=== PATIENT | male | born 1955 | race Caucasian/White ===

== ENCOUNTER 2019-04-16 12:33 | Inpatient (IN) | payer OTHER ==
[2019-04-16 12:53] VITALS: BMI 25.5
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
[2019-04-16] MEDS ORDERED: MAGNESIUM CITRATE 300 ML BOTTLE PO PRN (13:29)
[2019-04-16] MEDS ORDERED: MAGNESIUM HYDROX 2400MG/30ML ORAL SUSPENSION 30 ML CUP PO PRN (13:29)
[2019-04-16] MEDS ORDERED: ACETAMINOPHEN 325 MG TABLET (FP) PO PRN (13:29)
[2019-04-16] MEDS ORDERED: MENTHOL/PHENOL 1 EACH UD MM PRN (13:29)
[2019-04-16] MEDS ORDERED: MAG HYDROX/AL HYDROX/SIMETH 30 ML UNIT-DOSE CUP PO PRN (13:29)
[2019-04-16] MEDS ORDERED: IBUPROFEN 400 MG TABLET (FP) PO PRN (13:29)
[2019-04-16] MEDS ORDERED: BISMUTH SUBSALICYLATE 524 MG/30 ML UD PO PRN (13:29)
[2019-04-16] MEDS ORDERED: METHOCARBAMOL 500 MG TABLET PO PRN (13:29)
[2019-04-16] MEDS ORDERED: chlordiazePOXIDE HCL 25 MG CAPSULE PO PRN (13:29)
[2019-04-16] MEDS ORDERED: hydrOXYzine HCL 25 MG TABLET (FP) PO PRN (13:29)
[2019-04-16] MEDS ORDERED: ALBUTEROL SO4 8 GM HFA INHALER IH PRN (13:31)
[2019-04-16] MEDS ORDERED: ARTIFICIAL TEARS (POLYVINYL ALCOHOL) OPTH DROPS OU PRN (13:32)
[2019-04-16] MEDS ORDERED: chlordiazePOXIDE HCL 25 MG CAPSULE PO ONE (14:30)
[2019-04-16] MEDS: chlordiazePOXIDE HCL 25 MG CAPSULE PO SCH ×2 (18:16→22:54)
[2019-04-16 21:40] LABS: PH,URINE 5.5 (5.0-8.0); URINE APPEARANCE TURBID; URINE BILIRUBIN NEGATIVE (NEGATIVE); URINE COLOR YELLOW; URINE GLUCOSE (UA) NEGATIVE (NEGATIVE); URINE KETONE NEGATIVE (NEGATIVE); URINE LEUK ESTERASE NEGATIVE (NEGATIVE); URINE NITRITE NEGATIVE (NEGATIVE); URINE PROTEIN NEGATIVE (NEGATIVE); URINE UROBILINOGEN 0.2 mg/dL (0.2-1.0)
[2019-04-16] MEDS: MELATONIN 5 MG TABLETS PO PRN (22:54)
[2019-04-16] MEDS: THIAMINE HCL 100 MG TABLET (FP) PO SCH (22:54)
--- NOTE | 2019-04-16 23:57 | EKG ---
Test Reason : Blood Pressure : / mmHG Vent. Rate : 074 BPM Atrial Rate : 074 BPM P-R Int : 160 ms QRS Dur : 086 ms QT Int : 392 ms P-R-T Axes : 062 -34 043 degrees QTc Int : 435 ms NORMAL SINUS RHYTHM LEFT AXIS DEVIATION ABNORMAL ECG NO PREVIOUS ECGS AVAILABLE Confirmed by JALEN LA, ROLANDA ([id number]) on 04/16/2019 11:56:58 PM Referred By: KERLINE PRITCHARD Confirmed By:ROLANDA RAO MD
[2019-04-17] MEDS: chlordiazePOXIDE HCL 25 MG CAPSULE PO SCH ×4 (05:31→22:29)
[2019-04-17 10:47] LABS: ALBUMIN 2.9 g/dl (3.4-5.0); BILIRUBIN,TOTAL 0.7 mg/dL (0.2-1); BLOOD UREA NITROGEN 12.8 mg/dL (7-18); CALCIUM 8.4 mg/dL (8.5-10.1); CREATININE 0.9 mg/dL (0.55-1.3); POTASSIUM 4.1 mmol/L (3.5-5.1); TOT PROT 6.6 g/dl (6.4-8.2)
[2019-04-17 10:49] LABS: HEMATOCRIT 38.3 % (35.4-49); MCH 32.1 pg (25.7-33.7); MCHC 34.1 g/dl (32.0-35.9); MEAN CELL VOLUME 94.1 fl (80-96); MEAN PLT VOLUME 9.2 fl (7.5-11.1); PLATELET COUNT 231 K/MM3 (134-434); RBC 4.07 M/mm3 (4.00-5.60); RDW 13.2 % (11.9-15.9); WHITE BLOOD COUNT 4.8 K/mm3 (4.0-10.0)
[2019-04-17] MEDS: PRENATAL VITAMINS W/ FOLIC ACID TABLET (FP) PO SCH (10:49)
--- NOTE | 2019-04-17 11:28 | PN ---
S CIWA - CIWA Score Nausea/Vomitin-Mild Nausea/No Vomiting Muscle Tremors: 4-Moderate,w/Arms Extend Anxiety: 2 Agitation: 3 Paroxysmal Sweats: 1-Minimal Palms Moist Orientation: 1-Uncertain about Date Tacttile Disturbances: 1-Very Mild Itch/Numbness Auditory Disturbances: 0-None Visual Disturbances: 0-None Headache: 1-Very Mild CIWA-Ar Total Score: 14 BHS Progress Note (SOAP) Subjective: observing the patient sitting on the edge of the bed eating breakfast alert speech clearly good eye contact encourage oral fluid Objective: 04/17/19 11:27 Vital Signs Temperature 97.2 F L 04/17/19 09:10 Pulse Rate 88 04/17/19 09:10 Respiratory Rate 18 04/17/19 09:10 Blood Pressure 90/65 04/17/19 09:10 O2 Sat by Pulse Oximetry (%) Laboratory Last Values Sodium 142 mmol/L (136-145) 04/17/19 07:50 Potassium 4.1 mmol/L (3.5-5.1) 04/17/19 07:50 Chloride 109 mmol/L (98-107) H 04/17/19 07:50 Carbon Dioxide 27 mmol/L (21-32) 04/17/19 07:50 Anion Gap 6 MMOL/L (8-16) L 04/17/19 07:50 BUN 12.8 mg/dL (7-18) 04/17/19 07:50 Creatinine 0.9 mg/dL (0.55-1.3) 04/17/19 07:50 Est GFR (CKD-EPI)AfAm 105.72 04/17/19 07:50 Est GFR (CKD-EPI)NonAf 91.22 04/17/19 07:50 Random Glucose 84 mg/dL (74-106) 04/17/19 07:50 Calcium 8.4 mg/dL (8.5-10.1) L 04/17/19 07:50 Total Bilirubin 0.7 mg/dL (0.2-1) 04/17/19 07:50 AST 13 U/L (15-37) L 04/17/19 07:50 ALT 15 U/L (13-61) 04/17/19 07:50 Alkaline Phosphatase 132 U/L (45-117) H 04/17/19 07:50 Total Protein 6.6 g/dl (6.4-8.2) 04/17/19 07:50 Albumin 2.9 g/dl (3.4-5.0) L 04/17/19 07:50 Urine Color Yellow 04/16/19 15:20 Urine Appearance Turbid 04/16/19 15:20 Urine pH 5.5 (5.0-8.0) 04/16/19 15:20 Ur Specific [place] 1.022 (1.010-1.035) 04/16/19 15:20 Urine Protein Negative (NEGATIVE) 04/16/19 15:20 Urine Glucose (UA) Negative (NEGATIVE) 04/16/19 15:20 Urine Ketones Negative (NEGATIVE) 04/16/19 15:20 Urine Blood Negative (NEGATIVE) 04/16/19 15:20 Urine Nitrite Negative (NEGATIVE) 04/16/19 15:20 Urine Bilirubin Negative (NEGATIVE) 04/16/19 15:20 Urine Urobilinogen 0.2 mg/dL (0.2-1.0) 04/16/19 15:20 Ur Leukocyte Esterase Negative (NEGATIVE) 04/16/19 15:20 lab noted Assessment: 04/17/19 11:27 alcohol withdrawal sx Plan: continue alcohol detox
[2019-04-17] MEDS: THIAMINE HCL 100 MG TABLET (FP) PO SCH (22:29)
[2019-04-18] MEDS: chlordiazePOXIDE HCL 25 MG CAPSULE PO SCH ×4 (07:25→22:04)
[2019-04-18] MEDS: PRENATAL VITAMINS W/ FOLIC ACID TABLET (FP) PO SCH (10:37)
--- NOTE | 2019-04-18 14:08 | PN ---
[facility] CIWA - CIWA Score Nausea/Vomitin-Mild Nausea/No Vomiting Muscle Tremors: 3 Anxiety: 3 Agitation: 3 Paroxysmal Sweats: 1-Minimal Palms Moist Orientation: 0-Oriented Tacttile Disturbances: 1-Very Mild Itch/Numbness Auditory Disturbances: 0-None Visual Disturbances: 0-None Headache: 1-Very Mild CIWA-Ar Total Score: 13 S Progress Note (SOAP) Subjective: resting on bed feels tired low energy denies suicidal ideation tolerate food and fluid well mild tremor Objective: 04/18/19 14:07 Vital Signs Temperature 97.1 F L 04/18/19 13:38 Pulse Rate 100 H 04/18/19 13:38 Respiratory Rate 18 04/18/19 13:38 Blood Pressure 109/71 04/18/19 13:38 O2 Sat by Pulse Oximetry (%) Laboratory Last Values WBC 4.8 K/mm3 (4.0-10.0) 04/17/19 07:50 RBC 4.07 M/mm3 (4.00-5.60) 04/17/19 07:50 Hgb 13.0 GM/dL (11.7-16.9) 04/17/19 07:50 Hct 38.3 % (35.4-49) 04/17/19 07:50 MCV 94.1 fl (80-96) 04/17/19 07:50 MCH 32.1 pg (25.7-33.7) 04/17/19 07:50 MCHC 34.1 g/dl (32.0-35.9) 04/17/19 07:50 RDW 13.2 % (11.9-15.9) 04/17/19 07:50 Plt Count 231 K/MM3 (134-434) 04/17/19 07:50 MPV 9.2 fl (7.5-11.1) 04/17/19 07:50 Sodium 142 mmol/L (136-145) 04/17/19 07:50 Potassium 4.1 mmol/L (3.5-5.1) 04/17/19 07:50 Chloride 109 mmol/L (98-107) H 04/17/19 07:50 Carbon Dioxide 27 mmol/L (21-32) 04/17/19 07:50 Anion Gap 6 MMOL/L (8-16) L 04/17/19 07:50 BUN 12.8 mg/dL (7-18) 04/17/19 07:50 Creatinine 0.9 mg/dL (0.55-1.3) 04/17/19 07:50 Est GFR (CKD-EPI)AfAm 105.72 04/17/19 07:50 Est GFR (CKD-EPI)NonAf 91.22 04/17/19 07:50 Random Glucose 84 mg/dL (74-106) 04/17/19 07:50 Calcium 8.4 mg/dL (8.5-10.1) L 04/17/19 07:50 Total Bilirubin 0.7 mg/dL (0.2-1) 04/17/19 07:50 AST 13 U/L (15-37) L 04/17/19 07:50 ALT 15 U/L (13-61) 04/17/19 07:50 Alkaline Phosphatase 132 U/L (45-117) H 04/17/19 07:50 Total Protein 6.6 g/dl (6.4-8.2) 04/17/19 07:50 Albumin 2.9 g/dl (3.4-5.0) L 04/17/19 07:50 Urine Color Yellow 04/16/19 15:20 Urine Appearance Turbid 04/16/19 15:20 Urine pH 5.5 (5.0-8.0) 04/16/19 15:20 Ur Specific [place] 1.022 (1.010-1.035) 04/16/19 15:20 Urine Protein Negative (NEGATIVE) 04/16/19 15:20 Urine Glucose (UA) Negative (NEGATIVE) 04/16/19 15:20 Urine Ketones Negative (NEGATIVE) 04/16/19 15:20 Urine Blood Negative (NEGATIVE) 04/16/19 15:20 Urine Nitrite Negative (NEGATIVE) 04/16/19 15:20 Urine Bilirubin Negative (NEGATIVE) 04/16/19 15:20 Urine Urobilinogen 0.2 mg/dL (0.2-1.0) 04/16/19 15:20 Ur Leukocyte Esterase Negative (NEGATIVE) 04/16/19 15:20 RPR Titer Nonreactive (NONREACTIVE) 04/17/19 07:50 lab noted feeling anxious that he [facility] 04/18/19 14:08 Assessment: 04/18/19 14:08 alcohol withdrawal sx Plan: continue alcohol detox
[2019-04-18] MEDS: THIAMINE HCL 100 MG TABLET (FP) PO SCH (22:04)
[2019-04-19] MEDS ORDERED: chlordiazePOXIDE HCL 10 MG CAPSULE PO PRN
[2019-04-19] MEDS: chlordiazePOXIDE HCL 10 MG CAPSULE PO SCH ×4 (05:23→22:36)
[2019-04-19] MEDS: PRENATAL VITAMINS W/ FOLIC ACID TABLET (FP) PO SCH (10:53)
--- NOTE | 2019-04-19 14:07 | PN ---
[facility] CIWA - CIWA Score Nausea/Vomitin-Mild Nausea/No Vomiting Muscle Tremors: 3 Anxiety: 1-Mildly Anxious Agitation: 2 Paroxysmal Sweats: 1-Minimal Palms Moist Orientation: 0-Oriented Tacttile Disturbances: 1-Very Mild Itch/Numbness Auditory Disturbances: 0-None Visual Disturbances: 0-None Headache: 1-Very Mild CIWA-Ar Total Score: 10 S Progress Note (SOAP) Subjective: limited conversation with the staff avoid discuss aftercare with the staff denies suicidal ideation Objective: 04/19/19 14:06 Vital Signs Temperature 97.7 F 04/19/19 13:27 Pulse Rate 84 04/19/19 13:27 Respiratory Rate 18 04/19/19 13:27 Blood Pressure 92/63 04/19/19 13:27 O2 Sat by Pulse Oximetry (%) Laboratory Last Values WBC 4.8 K/mm3 (4.0-10.0) 04/17/19 07:50 RBC 4.07 M/mm3 (4.00-5.60) 04/17/19 07:50 Hgb 13.0 GM/dL (11.7-16.9) 04/17/19 07:50 Hct 38.3 % (35.4-49) 04/17/19 07:50 MCV 94.1 fl (80-96) 04/17/19 07:50 MCH 32.1 pg (25.7-33.7) 04/17/19 07:50 MCHC 34.1 g/dl (32.0-35.9) 04/17/19 07:50 RDW 13.2 % (11.9-15.9) 04/17/19 07:50 Plt Count 231 K/MM3 (134-434) 04/17/19 07:50 MPV 9.2 fl (7.5-11.1) 04/17/19 07:50 Sodium 142 mmol/L (136-145) 04/17/19 07:50 Potassium 4.1 mmol/L (3.5-5.1) 04/17/19 07:50 Chloride 109 mmol/L (98-107) H 04/17/19 07:50 Carbon Dioxide 27 mmol/L (21-32) 04/17/19 07:50 Anion Gap 6 MMOL/L (8-16) L 04/17/19 07:50 BUN 12.8 mg/dL (7-18) 04/17/19 07:50 Creatinine 0.9 mg/dL (0.55-1.3) 04/17/19 07:50 Est GFR (CKD-EPI)AfAm 105.72 04/17/19 07:50 Est GFR (CKD-EPI)NonAf 91.22 04/17/19 07:50 Random Glucose 84 mg/dL (74-106) 04/17/19 07:50 Calcium 8.4 mg/dL (8.5-10.1) L 04/17/19 07:50 Total Bilirubin 0.7 mg/dL (0.2-1) 04/17/19 07:50 AST 13 U/L (15-37) L 04/17/19 07:50 ALT 15 U/L (13-61) 04/17/19 07:50 Alkaline Phosphatase 132 U/L (45-117) H 04/17/19 07:50 Total Protein 6.6 g/dl (6.4-8.2) 04/17/19 07:50 Albumin 2.9 g/dl (3.4-5.0) L 04/17/19 07:50 Urine Color Yellow 04/16/19 15:20 Urine Appearance Turbid 04/16/19 15:20 Urine pH 5.5 (5.0-8.0) 04/16/19 15:20 Ur Specific [place] 1.022 (1.010-1.035) 04/16/19 15:20 Urine Protein Negative (NEGATIVE) 04/16/19 15:20 Urine Glucose (UA) Negative (NEGATIVE) 04/16/19 15:20 Urine Ketones Negative (NEGATIVE) 04/16/19 15:20 Urine Blood Negative (NEGATIVE) 04/16/19 15:20 Urine Nitrite Negative (NEGATIVE) 04/16/19 15:20 Urine Bilirubin Negative (NEGATIVE) 04/16/19 15:20 Urine Urobilinogen 0.2 mg/dL (0.2-1.0) 04/16/19 15:20 Ur Leukocyte Esterase Negative (NEGATIVE) 04/16/19 15:20 RPR Titer Nonreactive (NONREACTIVE) 04/17/19 07:50 lab noted Assessment: 04/19/19 14:07 alcohol withdrawal sx Plan: continue alcohol detox
[2019-04-19] MEDS ORDERED: NICOTINE 14 MG/24 HOURS TOPICAL PATCH TD SCH (18:00)
[2019-04-19] MEDS: THIAMINE HCL 100 MG TABLET (FP) PO SCH (22:35)
[2019-04-19] MEDS: MELATONIN 5 MG TABLETS PO PRN (22:36)
[2019-04-20] MEDS: chlordiazePOXIDE HCL 10 MG CAPSULE PO SCH ×2 (06:10→17:55)
[2019-04-20] MEDS: PRENATAL VITAMINS W/ FOLIC ACID TABLET (FP) PO SCH (10:38)
--- NOTE | 2019-04-20 12:19 | PN ---
S CIWA - CIWA Score Nausea/Vomitin-No Nausea/No Vomiting Muscle Tremors: 2 Anxiety: 2 Agitation: 2 Paroxysmal Sweats: No Perspiration Orientation: 0-Oriented Tacttile Disturbances: 0-None Auditory Disturbances: 0-None Visual Disturbances: 0-None Headache: 0-None Present CIWA-Ar Total Score: 6 BHS Progress Note (SOAP) Subjective: 63 years old male admitted on 04/16/19 for acute alcohol withdrawal sx management doing well with librium detox protocol encourage to discuss aftercare with staff patient prefers community support approach Objective: 04/20/19 12:22 Vital Signs Temperature 98.3 F 04/20/19 09:05 Pulse Rate 78 04/20/19 09:05 Respiratory Rate 18 04/20/19 09:05 Blood Pressure 106/58 L 04/20/19 09:05 O2 Sat by Pulse Oximetry (%) Laboratory Last Values WBC 4.8 K/mm3 (4.0-10.0) 04/17/19 07:50 RBC 4.07 M/mm3 (4.00-5.60) 04/17/19 07:50 Hgb 13.0 GM/dL (11.7-16.9) 04/17/19 07:50 Hct 38.3 % (35.4-49) 04/17/19 07:50 MCV 94.1 fl (80-96) 04/17/19 07:50 MCH 32.1 pg (25.7-33.7) 04/17/19 07:50 MCHC 34.1 g/dl (32.0-35.9) 04/17/19 07:50 RDW 13.2 % (11.9-15.9) 04/17/19 07:50 Plt Count 231 K/MM3 (134-434) 04/17/19 07:50 MPV 9.2 fl (7.5-11.1) 04/17/19 07:50 Sodium 142 mmol/L (136-145) 04/17/19 07:50 Potassium 4.1 mmol/L (3.5-5.1) 04/17/19 07:50 Chloride 109 mmol/L (98-107) H 04/17/19 07:50 Carbon Dioxide 27 mmol/L (21-32) 04/17/19 07:50 Anion Gap 6 MMOL/L (8-16) L 04/17/19 07:50 BUN 12.8 mg/dL (7-18) 04/17/19 07:50 Creatinine 0.9 mg/dL (0.55-1.3) 04/17/19 07:50 Est GFR (CKD-EPI)AfAm 105.72 04/17/19 07:50 Est GFR (CKD-EPI)NonAf 91.22 04/17/19 07:50 Random Glucose 84 mg/dL (74-106) 04/17/19 07:50 Calcium 8.4 mg/dL (8.5-10.1) L 04/17/19 07:50 Total Bilirubin 0.7 mg/dL (0.2-1) 04/17/19 07:50 AST 13 U/L (15-37) L 04/17/19 07:50 ALT 15 U/L (13-61) 04/17/19 07:50 Alkaline Phosphatase 132 U/L (45-117) H 04/17/19 07:50 Total Protein 6.6 g/dl (6.4-8.2) 04/17/19 07:50 Albumin 2.9 g/dl (3.4-5.0) L 04/17/19 07:50 Urine Color Yellow 04/16/19 15:20 Urine Appearance Turbid 04/16/19 15:20 Urine pH 5.5 (5.0-8.0) 04/16/19 15:20 Ur Specific [place] 1.022 (1.010-1.035) 04/16/19 15:20 Urine Protein Negative (NEGATIVE) 04/16/19 15:20 Urine Glucose (UA) Negative (NEGATIVE) 04/16/19 15:20 Urine Ketones Negative (NEGATIVE) 04/16/19 15:20 Urine Blood Negative (NEGATIVE) 04/16/19 15:20 Urine Nitrite Negative (NEGATIVE) 04/16/19 15:20 Urine Bilirubin Negative (NEGATIVE) 04/16/19 15:20 Urine Urobilinogen 0.2 mg/dL (0.2-1.0) 04/16/19 15:20 Ur Leukocyte Esterase Negative (NEGATIVE) 04/16/19 15:20 RPR Titer Nonreactive (NONREACTIVE) 04/17/19 07:50 lab noted Assessment: 04/20/19 12:22 alcohol withdrawal sx Plan: continue alcohol detox
[2019-04-20] MEDS: MELATONIN 5 MG TABLETS PO PRN (22:20)
[2019-04-20] MEDS: THIAMINE HCL 100 MG TABLET (FP) PO SCH (22:20)
[2019-04-21] MEDS ORDERED: chlordiazePOXIDE HCL 10 MG CAPSULE PO ONE (05:00)
[2019-04-21 06:13] VITALS: BP 96/60; PULSE 76; TEMP 96.8
--- NOTE | 2019-04-21 16:04 | DS ---
[facility] Detox Discharge Summary Admission Date: 04/16/19 Discharge Date: 04/21/19 - History Present History: Alcohol Dependence Additional Comments: 63 years old male admitted on 04/16/19 for alcohol withdrawal sx no complication throughout the detox stay alert oriented x 3 denies dizziness no shortness of breath - Physical Exam Results Vital Signs: Vital Signs Temperature 96.8 F L 04/21/19 06:13 Pulse Rate 76 04/21/19 06:13 Respiratory Rate 18 04/21/19 06:30 Blood Pressure 96/60 04/21/19 06:13 O2 Sat by Pulse Oximetry (%) Pertinent Admission Physical Exam Findings: alcohol withdrawal sx Laboratory Last Values WBC 4.8 K/mm3 (4.0-10.0) 04/17/19 07:50 RBC 4.07 M/mm3 (4.00-5.60) 04/17/19 07:50 Hgb 13.0 GM/dL (11.7-16.9) 04/17/19 07:50 Hct 38.3 % (35.4-49) 04/17/19 07:50 MCV 94.1 fl (80-96) 04/17/19 07:50 MCH 32.1 pg (25.7-33.7) 04/17/19 07:50 MCHC 34.1 g/dl (32.0-35.9) 04/17/19 07:50 RDW 13.2 % (11.9-15.9) 04/17/19 07:50 Plt Count 231 K/MM3 (134-434) 04/17/19 07:50 MPV 9.2 fl (7.5-11.1) 04/17/19 07:50 Sodium 142 mmol/L (136-145) 04/17/19 07:50 Potassium 4.1 mmol/L (3.5-5.1) 04/17/19 07:50 Chloride 109 mmol/L (98-107) H 04/17/19 07:50 Carbon Dioxide 27 mmol/L (21-32) 04/17/19 07:50 Anion Gap 6 MMOL/L (8-16) L 04/17/19 07:50 BUN 12.8 mg/dL (7-18) 04/17/19 07:50 Creatinine 0.9 mg/dL (0.55-1.3) 04/17/19 07:50 Est GFR (CKD-EPI)AfAm 105.72 04/17/19 07:50 Est GFR (CKD-EPI)NonAf 91.22 04/17/19 07:50 Random Glucose 84 mg/dL (74-106) 04/17/19 07:50 Calcium 8.4 mg/dL (8.5-10.1) L 04/17/19 07:50 Total Bilirubin 0.7 mg/dL (0.2-1) 04/17/19 07:50 AST 13 U/L (15-37) L 04/17/19 07:50 ALT 15 U/L (13-61) 04/17/19 07:50 Alkaline Phosphatase 132 U/L (45-117) H 04/17/19 07:50 Total Protein 6.6 g/dl (6.4-8.2) 04/17/19 07:50 Albumin 2.9 g/dl (3.4-5.0) L 04/17/19 07:50 Urine Color Yellow 04/16/19 15:20 Urine Appearance Turbid 04/16/19 15:20 Urine pH 5.5 (5.0-8.0) 04/16/19 15:20 Ur Specific [place] 1.022 (1.010-1.035) 04/16/19 15:20 Urine Protein Negative (NEGATIVE) 04/16/19 15:20 Urine Glucose (UA) Negative (NEGATIVE) 04/16/19 15:20 Urine Ketones Negative (NEGATIVE) 04/16/19 15:20 Urine Blood Negative (NEGATIVE) 04/16/19 15:20 Urine Nitrite Negative (NEGATIVE) 04/16/19 15:20 Urine Bilirubin Negative (NEGATIVE) 04/16/19 15:20 Urine Urobilinogen 0.2 mg/dL (0.2-1.0) 04/16/19 15:20 Ur Leukocyte Esterase Negative (NEGATIVE) 04/16/19 15:20 RPR Titer Nonreactive (NONREACTIVE) 04/17/19 07:50 TB (QFT) Incubation (.) 04/17/19 08:00 TB Test (QFT) Nil 0.15 IU/mL (.) 04/17/19 08:00 TB Test (QFT) Mitogen >10.00 IU/mL (.) 04/17/19 08:00 TB Test (QFT) Antigen 0.14 IU/mL (.) 04/17/19 08:00 TB Test (QFT) Negative (Negative) 04/17/19 08:00 TB Positive Criteria (.) 04/17/19 08:00 lab noted - Treatment Hospital Course: Detox Protocol Followed, Detoxed Safely, Responded well, Discharged Condition Good, Rehab Referral Accepted Patient has Accepted a Rehab Referral to: community support approach - Medication Discharge Medications: Ambulatory Orders Albuterol Sulfate Inhaler - [Ventolin HFA Inhaler -] 2 inh PO Q4H PRN #1 inhaler 04/20/19 - Diagnosis (1) Alcohol dependence with uncomplicated withdrawal Status: Acute (2) Asthma Status: Chronic Qualifiers: Asthma severity: mild Asthma persistence: intermittent Asthma complication type: with status asthmaticus Qualified Code(s): J45.22 - Mild intermittent asthma with status asthmaticus - AMA Did Patient Leave Against Medical Advice: No
== END 2019-04-21 08:59 | disposition home or self-care (01) | DRG 897 ==
LOC: YASAS 12:33 → Y3N 14:33
PROVIDERS: ADMIT Surgery; ATTEND Surgery
PROC: HZ2ZZZZ Detoxification Services for Substance Abuse Treatment (ICD-10-PCS; principal; 2019-04-16)
DX: F10.230 Alcohol dependence with withdrawal, uncomplicated (principal); F14.10 Cocaine abuse, uncomplicated; J45.20 Mild intermittent asthma, uncomplicated; H02.739 Vitiligo of unspecified eye, unspecified eyelid and periocular area; M54.5 Low back pain; G89.29 Other chronic pain; H04.129 Dry eye syndrome of unspecified lacrimal gland
CPT/HCPCS: 36415; 80053; 81003; 85027; 86480; 86593; 93005; 93010

== ENCOUNTER 2019-09-03 11:28 | Inpatient (IN) | payer OTHER ==
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
[2019-09-03 14:10] VITALS: BMI 24.3
[2019-09-03] MEDS ORDERED: LORazepam 1 MG TABLET PO PRN (14:49)
[2019-09-03] MEDS ORDERED: MAGNESIUM CITRATE 300 ML BOTTLE PO PRN (14:49)
[2019-09-03] MEDS ORDERED: IBUPROFEN 600 MG TABLET (FP) PO PRN (14:49)
[2019-09-03] MEDS ORDERED: ACETAMINOPHEN 325 MG TABLET (FP) PO PRN ×2 (14:49)
[2019-09-03] MEDS ORDERED: METHOCARBAMOL 500 MG TABLET PO PRN (14:49)
[2019-09-03] MEDS ORDERED: MAGNESIUM HYDROX 2400MG/30ML ORAL SUSPENSION 30 ML CUP PO PRN (14:49)
[2019-09-03] MEDS ORDERED: BISMUTH SUBSALICYLATE 524 MG/30 ML UD PO PRN (14:49)
[2019-09-03] MEDS ORDERED: hydrOXYzine PAMOATE 25 MG CAPSULE (FP) PO PRN (14:49)
[2019-09-03] MEDS ORDERED: MAG HYDROX/AL HYDROX/SIMETH 30 ML UNIT-DOSE CUP PO PRN (14:49)
[2019-09-03] MEDS ORDERED: MENTHOL/PHENOL 1 EACH UD MM PRN (14:49)
[2019-09-03] MEDS ORDERED: traZODone HCL 50 MG TABLET (FP) PO PRN (14:49)
[2019-09-03] MEDS ORDERED: ALBUTEROL SO4 8 GM HFA INHALER IH PRN (14:51)
[2019-09-03] MEDS ORDERED: ARTIFICIAL TEARS (POLYVINYL ALCOHOL) OPTH DROPS OU PRN (14:52)
[2019-09-03] MEDS ORDERED: LORazepam 2 MG TABLET PO ONE (15:30)
[2019-09-03] MEDS: LORazepam 2 MG TABLET PO SCH ×2 (17:30→22:19)
[2019-09-03] MEDS: PANTOPRAZOLE 40 MG TABLET (FP) PO SCH (17:30)
[2019-09-03] MEDS: MONTELUKAST NA 10 MG TABLET PO SCH (22:19)
[2019-09-03] MEDS: THIAMINE HCL 100 MG TABLET (FP) PO SCH (22:19)
[2019-09-03] MEDS: BUDESONIDE/FORMETEROL FUMARATE 80/4.5 mcg INHALER IH SCH (22:27)
[2019-09-04] MEDS: LORazepam 2 MG TABLET PO SCH ×4 (07:01→22:15)
[2019-09-04 09:59] LABS: HEMATOCRIT 37.9 % (35.4-49); HEMOGLOBIN 12.8 GM/dL (11.7-16.9); MCH 31.1 pg (25.7-33.7); MCHC 33.9 g/dl (32.0-35.9); MEAN CELL VOLUME 91.6 fl (80-96); PLATELET COUNT 236 K/MM3 (134-434); RBC 4.14 M/mm3 (4.00-5.60); RDW 13.8 % (11.9-15.9); WHITE BLOOD COUNT 5.1 K/mm3 (4.0-10.0)
[2019-09-04] MEDS: BUDESONIDE/FORMETEROL FUMARATE 80/4.5 mcg INHALER IH SCH ×2 (10:05→22:18)
[2019-09-04] MEDS: PANTOPRAZOLE 40 MG TABLET (FP) PO SCH (10:06)
[2019-09-04] MEDS: PRENATAL VITAMINS W/ FOLIC ACID TABLET (FP) PO SCH (10:06)
[2019-09-04 10:14] LABS: ALBUMIN 3.1 g/dl (3.4-5.0); BILIRUBIN,TOTAL 0.3 mg/dL (0.2-1); BLOOD UREA NITROGEN 16.5 mg/dL (7-18); CALCIUM 8.4 mg/dL (8.5-10.1); CREATININE 0.9 mg/dL (0.55-1.3); POTASSIUM 4.2 mmol/L (3.5-5.1); TOT PROT 6.7 g/dl (6.4-8.2)
[2019-09-04] MEDS ORDERED: FLU VACCINE QUAD 60 MCG/0.5 ML (MDV 19-20) IM ONE (12:00)
--- NOTE | 2019-09-04 13:18 | PN ---
[facility] CIWA - CIWA Score Nausea/Vomitin-Mild Nausea/No Vomiting Muscle Tremors: 3 Anxiety: 3 Agitation: 2 Paroxysmal Sweats: 3 Orientation: 0-Oriented Tacttile Disturbances: 0-None Auditory Disturbances: 0-None Visual Disturbances: 0-None Headache: 0-None Present CIWA-Ar Total Score: 12 S Progress Note (SOAP) Subjective: Feels ok, medication is working ok Objective: 09/04/19 13:15 Last Vital Signs Temp Pulse Resp BP Pulse Ox 98.2 F 106 H 16 116/70 09/04/19 09:52 09/04/19 09:52 09/04/19 09:52 09/04/19 09:52 Tachycardia, mild: pulse 106 bpm Laboratory Tests 09/04/19 09/04/19 09/04/19 07:50 07:50 07:50 WBC 5.1 RBC 4.14 Hgb 12.8 Hct 37.9 MCV 91.6 MCH 31.1 MCHC 33.9 RDW 13.8 Plt Count 236 MPV 9.0 Sodium 139 Potassium 4.2 Chloride 105 Carbon Dioxide 29 Anion Gap 6 L BUN 16.5 Creatinine 0.9 Est GFR (CKD-EPI)AfAm 105.72 Est GFR (CKD-EPI)NonAf 91.22 Random Glucose 85 Calcium 8.4 L Total Bilirubin 0.3 AST 14 L ALT 18 Alkaline Phosphatase 123 H Total Protein 6.7 Albumin 3.1 L RPR Titer HIV 1&2 Antibody Screen Negative HIV P24 Antigen Negative 09/04/19 07:50 WBC RBC Hgb Hct MCV MCH MCHC RDW Plt Count MPV Sodium Potassium Chloride Carbon Dioxide Anion Gap BUN Creatinine Est GFR (CKD-EPI)AfAm Est GFR (CKD-EPI)NonAf Random Glucose Calcium Total Bilirubin AST ALT Alkaline Phosphatase Total Protein Albumin RPR Titer Nonreactive HIV 1&2 Antibody Screen HIV P24 Antigen Labs reviewed: albumin 3.1 Assessment: 09/04/19 13:16 Withdrawal sxs Noted with tachycardia and hypoalbuminemia Plan: Continue detox Encouraged PO water intake Tachycardia, mild: most likely due to withdrawal (previous pulse rate wnl), continue detox protocol, consider EKG if no improvement Hypoalbuminemia, mild: encouraged diet
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
[2019-09-04] MEDS: MONTELUKAST NA 10 MG TABLET PO SCH (22:15)
[2019-09-04] MEDS: THIAMINE HCL 100 MG TABLET (FP) PO SCH (22:15)
[2019-09-04] MEDS: traZODone HCL 50 MG TABLET (FP) PO SCH (22:15)
[2019-09-04] MEDS: MELATONIN 5 MG TABLETS PO PRN (22:18)
[2019-09-05] MEDS: LORazepam 1 MG TABLET PO SCH ×4 (06:47→22:04)
--- NOTE | 2019-09-05 10:10 | PN ---
S CIWA - CIWA Score Nausea/Vomitin Muscle Tremors: 2 Anxiety: 2 Agitation: 2 Paroxysmal Sweats: No Perspiration Orientation: 0-Oriented Tacttile Disturbances: 1-Very Mild Itch/Numbness Auditory Disturbances: 0-None Visual Disturbances: 0-None Headache: 1-Very Mild CIWA-Ar Total Score: 10 S Progress Note (SOAP) Subjective: alert,irritable,anxious,interrupted sleep,tremor Objective: 09/05/19 10:08 Vital Signs Temperature 98.2 F 09/05/19 08:15 Pulse Rate 80 09/05/19 08:15 Respiratory Rate 18 09/05/19 08:15 Blood Pressure 112/73 09/05/19 08:15 O2 Sat by Pulse Oximetry (%) 09/05/19 10:09 Laboratory Last Values WBC 5.1 K/mm3 (4.0-10.0) 09/04/19 07:50 RBC 4.14 M/mm3 (4.00-5.60) 09/04/19 07:50 Hgb 12.8 GM/dL (11.7-16.9) 09/04/19 07:50 Hct 37.9 % (35.4-49) 09/04/19 07:50 MCV 91.6 fl (80-96) 09/04/19 07:50 MCH 31.1 pg (25.7-33.7) 09/04/19 07:50 MCHC 33.9 g/dl (32.0-35.9) 09/04/19 07:50 RDW 13.8 % (11.9-15.9) 09/04/19 07:50 Plt Count 236 K/MM3 (134-434) 09/04/19 07:50 MPV 9.0 fl (7.5-11.1) 09/04/19 07:50 Sodium 139 mmol/L (136-145) 09/04/19 07:50 Potassium 4.2 mmol/L (3.5-5.1) 09/04/19 07:50 Chloride 105 mmol/L (98-107) 09/04/19 07:50 Carbon Dioxide 29 mmol/L (21-32) 09/04/19 07:50 Anion Gap 6 MMOL/L (8-16) L 09/04/19 07:50 BUN 16.5 mg/dL (7-18) 09/04/19 07:50 Creatinine 0.9 mg/dL (0.55-1.3) 09/04/19 07:50 Est GFR (CKD-EPI)AfAm 105.72 09/04/19 07:50 Est GFR (CKD-EPI)NonAf 91.22 09/04/19 07:50 Random Glucose 85 mg/dL (74-106) 09/04/19 07:50 Calcium 8.4 mg/dL (8.5-10.1) L 09/04/19 07:50 Total Bilirubin 0.3 mg/dL (0.2-1) 09/04/19 07:50 AST 14 U/L (15-37) L 09/04/19 07:50 ALT 18 U/L (13-61) 09/04/19 07:50 Alkaline Phosphatase 123 U/L (45-117) H 09/04/19 07:50 Total Protein 6.7 g/dl (6.4-8.2) 09/04/19 07:50 Albumin 3.1 g/dl (3.4-5.0) L 09/04/19 07:50 RPR Titer Nonreactive (NONREACTIVE) 09/04/19 07:50 HIV 1&2 Antibody Screen Negative 09/04/19 07:50 HIV P24 Antigen Negative 09/04/19 07:50 Assessment: 09/05/19 10:09 withdrawal symptom Plan: continue detox ativan regimen
[2019-09-05] MEDS: PANTOPRAZOLE 40 MG TABLET (FP) PO SCH (10:54)
[2019-09-05] MEDS: PRENATAL VITAMINS W/ FOLIC ACID TABLET (FP) PO SCH (10:54)
[2019-09-05] MEDS: BUDESONIDE/FORMETEROL FUMARATE 80/4.5 mcg INHALER IH SCH ×2 (10:55→22:04)
[2019-09-05] MEDS: THIAMINE HCL 100 MG TABLET (FP) PO SCH (22:03)
[2019-09-05] MEDS: MONTELUKAST NA 10 MG TABLET PO SCH (22:03)
[2019-09-05] MEDS: traZODone HCL 50 MG TABLET (FP) PO SCH (22:04)
[2019-09-05] MEDS: MELATONIN 5 MG TABLETS PO PRN (22:04)
[2019-09-06] MEDS ORDERED: LORazepam 0.5 MG TABLET PO PRN
[2019-09-06] MEDS: LORazepam 0.5 MG TABLET PO SCH ×4 (06:38→22:03)
--- NOTE | 2019-09-06 09:44 | PN ---
S CIWA - CIWA Score Nausea/Vomitin-Mild Nausea/No Vomiting Muscle Tremors: 2 Anxiety: 2 Agitation: 2 Paroxysmal Sweats: No Perspiration Orientation: 0-Oriented Tacttile Disturbances: 1-Very Mild Itch/Numbness Auditory Disturbances: 0-None Visual Disturbances: 0-None Headache: 1-Very Mild CIWA-Ar Total Score: 9 [facility] Progress Note (SOAP) Subjective: alert,irritable,anxious,interrupted sleep Objective: 09/06/19 09:43 Vital Signs Temperature 97.9 F 09/06/19 09:09 Pulse Rate 107 H 09/06/19 09:09 Respiratory Rate 20 09/06/19 09:09 Blood Pressure 105/68 09/06/19 09:09 O2 Sat by Pulse Oximetry (%) Assessment: 09/06/19 09:43 withdrawal symptom Plan: continue detox ativan regimen
[2019-09-06] MEDS: BUDESONIDE/FORMETEROL FUMARATE 80/4.5 mcg INHALER IH SCH ×2 (11:00→22:02)
[2019-09-06] MEDS: PRENATAL VITAMINS W/ FOLIC ACID TABLET (FP) PO SCH (11:00)
[2019-09-06] MEDS: PANTOPRAZOLE 40 MG TABLET (FP) PO SCH (11:00)
[2019-09-06] MEDS: MONTELUKAST NA 10 MG TABLET PO SCH (22:03)
[2019-09-06] MEDS: traZODone HCL 50 MG TABLET (FP) PO SCH (22:03)
[2019-09-06] MEDS: THIAMINE HCL 100 MG TABLET (FP) PO SCH (22:03)
[2019-09-07] MEDS: MELATONIN 5 MG TABLETS PO PRN (02:57)
[2019-09-07] MEDS ORDERED: LORazepam 0.5 MG TABLET PO ONE (05:00)
--- NOTE | 2019-09-07 08:50 | DS ---
[facility] Detox Discharge Summary Admission Date: 09/03/19 Discharge Date: 09/07/19 - History Present History: Alcohol Dependence, Cocaine Dependence - Physical Exam Results Vital Signs: Vital Signs Temperature 97.9 F 09/07/19 06:36 Pulse Rate 74 09/07/19 06:36 Respiratory Rate 18 09/07/19 06:36 Blood Pressure 105/53 L 09/07/19 06:36 O2 Sat by Pulse Oximetry (%) Pertinent Admission Physical Exam Findings: Vital Signs Temperature 97.9 F 09/07/19 06:36 Pulse Rate 74 09/07/19 06:36 Respiratory Rate 18 09/07/19 06:36 Blood Pressure 105/53 L 09/07/19 06:36 O2 Sat by Pulse Oximetry (%) Laboratory Tests 09/04/19 09/04/19 09/04/19 07:50 07:50 07:50 WBC 5.1 RBC 4.14 Hgb 12.8 Hct 37.9 MCV 91.6 MCH 31.1 MCHC 33.9 RDW 13.8 Plt Count 236 MPV 9.0 Sodium 139 Potassium 4.2 Chloride 105 Carbon Dioxide 29 Anion Gap 6 L BUN 16.5 Creatinine 0.9 Est GFR (CKD-EPI)AfAm 105.72 Est GFR (CKD-EPI)NonAf 91.22 Random Glucose 85 Calcium 8.4 L Total Bilirubin 0.3 AST 14 L ALT 18 Alkaline Phosphatase 123 H Total Protein 6.7 Albumin 3.1 L RPR Titer HIV 1&2 Antibody Screen Negative HIV P24 Antigen Negative 09/04/19 07:50 WBC RBC Hgb Hct MCV MCH MCHC RDW Plt Count MPV Sodium Potassium Chloride Carbon Dioxide Anion Gap BUN Creatinine Est GFR (CKD-EPI)AfAm Est GFR (CKD-EPI)NonAf Random Glucose Calcium Total Bilirubin AST ALT Alkaline Phosphatase Total Protein Albumin RPR Titer Nonreactive HIV 1&2 Antibody Screen HIV P24 Antigen aaox3 ambulating no acute distress - Treatment Hospital Course: Detox Protocol Followed, Detoxed Safely, Responded well, Discharged Condition Good, Rehab Referral Accepted Patient has Accepted a Rehab Referral to: declined rehab; referral provided - Medication Discharge Medications: Ambulatory Orders Albuterol Sulfate Inhaler - [Ventolin HFA Inhaler -] 2 inh PO Q4H PRN #1 inhaler 04/20/19 Fluticasone/Salmeterol [Advair 250-50 Diskus] 1 each IH BID 09/03/19 Ibuprofen 800 mg PO BID PRN 09/03/19 Ketotifen Fumarate [Zaditor] 5 ml OP BID PRN 09/03/19 Montelukast Na [Singulair -] 10 mg PO HS 09/03/19 Pantoprazole Sodium [Protonix -] 40 mg PO DAILY 09/03/19 - Diagnosis (1) Cocaine dependence Current Visit: Yes Status: Chronic Qualifiers: Substance use status: uncomplicated Qualified Code(s): F14.20 - Cocaine dependence, uncomplicated (2) Opiate abuse, episodic Current Visit: Yes Status: Acute (3) Substance-induced sleep disorder Current Visit: Yes Status: Acute (4) Alcohol dependence with uncomplicated withdrawal Current Visit: Yes Status: Chronic (5) Asthma Current Visit: Yes Status: Chronic Qualifiers: Asthma severity: mild Asthma persistence: intermittent Asthma complication type: with status asthmaticus Qualified Code(s): J45.22 - Mild intermittent asthma with status asthmaticus (6) Cataract Current Visit: Yes Status: Chronic Qualifiers: Cataract type: unspecified Laterality: right Qualified Code(s): H26.9 - Unspecified cataract (7) Cocaine abuse Current Visit: Yes Status: Chronic (8) Dry eyes Current Visit: Yes Status: Chronic (9) Low back pain radiating to right leg Current Visit: Yes Status: Chronic (10) Vitiligo Current Visit: Yes Status: Chronic (11) History of neck surgery Current Visit: Yes Status: Resolved - AMA Did Patient Leave Against Medical Advice: No
[2019-09-07 09:21] VITALS: BP 103/55; PULSE 83; TEMP 97.3
== END 2019-09-07 09:32 | disposition home or self-care (01) | DRG 897 ==
LOC: YASAS 11:28 → Y6N 15:12
PROVIDERS: ADMIT Allergy & Immunology; ATTEND Allergy & Immunology
PROC: HZ2ZZZZ Detoxification Services for Substance Abuse Treatment (ICD-10-PCS; principal; 2019-09-03)
DX: F10.230 Alcohol dependence with withdrawal, uncomplicated (principal); F14.20 Cocaine dependence, uncomplicated; F19.282 Other psychoactive substance dependence with psychoactive substance-induced sleep disorder; J45.22 Mild intermittent asthma with status asthmaticus; F11.10 Opioid abuse, uncomplicated; F32.9 Major depressive disorder, single episode, unspecified; H04.123 Dry eye syndrome of bilateral lacrimal glands; H26.9 Unspecified cataract; L80 Vitiligo; R00.0 Tachycardia, unspecified; E88.09 Other disorders of plasma-protein metabolism, not elsewhere classified; Z98.890 Other specified postprocedural states
CPT/HCPCS: 36415; 80053; 85027; 86593; 87389

== ENCOUNTER 2019-10-08 11:00 | Inpatient (IN) | payer OTHER ==
[2019-10-08 11:29] VITALS: BMI 26.4
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
[2019-10-08] MEDS ORDERED: hydrOXYzine PAMOATE 25 MG CAPSULE (FP) PO PRN (12:08)
[2019-10-08] MEDS ORDERED: METHOCARBAMOL 500 MG TABLET PO PRN (12:08)
[2019-10-08] MEDS ORDERED: MAGNESIUM CITRATE 300 ML BOTTLE PO PRN (12:08)
[2019-10-08] MEDS ORDERED: MAG HYDROX/AL HYDROX/SIMETH 30 ML UNIT-DOSE CUP PO PRN (12:08)
[2019-10-08] MEDS ORDERED: MAGNESIUM HYDROX 2400MG/30ML ORAL SUSPENSION 30 ML CUP PO PRN (12:08)
[2019-10-08] MEDS ORDERED: MENTHOL/PHENOL 1 EACH UD MM PRN (12:08)
[2019-10-08] MEDS ORDERED: chlordiazePOXIDE HCL 10 MG CAPSULE PO PRN (12:08)
[2019-10-08] MEDS ORDERED: BISMUTH SUBSALICYLATE 524 MG/30 ML UD PO PRN (12:08)
[2019-10-08] MEDS ORDERED: ACETAMINOPHEN 325 MG TABLET (FP) PO PRN ×2 (12:08)
[2019-10-08] MEDS ORDERED: ALBUTEROL SO4 8 GM HFA INHALER IH PRN (12:09)
[2019-10-08] MEDS ORDERED: TETRAHYDROZOLINE HCL EYE DROPS OU PRN (12:12)
[2019-10-08] MEDS ORDERED: chlordiazePOXIDE HCL 25 MG CAPSULE PO ONE (12:30)
[2019-10-08] MEDS: LIDOCAINE 5% TOPICAL PATCH TP SCH (13:04)
[2019-10-08] MEDS: chlordiazePOXIDE HCL 25 MG CAPSULE PO SCH ×2 (13:04→22:35)
[2019-10-08] MEDS: BUDESONIDE/FORMETEROL FUMARATE 160/4.5 mcg INHALER IH SCH ×2 (13:04→22:37)
[2019-10-08] MEDS: MONTELUKAST NA 10 MG TABLET PO SCH (22:34)
[2019-10-08] MEDS: traZODone HCL 50 MG TABLET (FP) PO PRN (22:35)
[2019-10-08] MEDS: THIAMINE HCL 100 MG TABLET (FP) PO SCH (22:35)
[2019-10-08] MEDS: IBUPROFEN 600 MG TABLET (FP) PO PRN (22:36)
[2019-10-08] MEDS: LIDOCAINE PATCH REMOVAL MC SCH (22:37)
[2019-10-09] MEDS: chlordiazePOXIDE HCL 25 MG CAPSULE PO SCH ×3 (05:52→22:42)
[2019-10-09] MEDS: IBUPROFEN 600 MG TABLET (FP) PO PRN (05:54)
[2019-10-09 10:52] LABS: HEMATOCRIT 39.8 % (35.4-49); HEMOGLOBIN 13.2 GM/dL (11.7-16.9); MCH 30.8 pg (25.7-33.7); MCHC 33.1 g/dl (32.0-35.9); MEAN PLT VOLUME 9.4 fl (7.5-11.1); PLATELET COUNT 278 K/MM3 (134-434); RBC 4.28 M/mm3 (4.00-5.60); RDW 13.4 % (11.9-15.9); WHITE BLOOD COUNT 4.6 K/mm3 (4.0-10.0)
[2019-10-09 11:01] LABS: ALBUMIN 3.2 g/dl (3.4-5.0); BILIRUBIN,TOTAL 0.7 mg/dL (0.2-1); BLOOD UREA NITROGEN 12.9 mg/dL (7-18); CALCIUM 8.5 mg/dL (8.5-10.1); CREATININE 1.1 mg/dL (0.55-1.3); POTASSIUM 3.8 mmol/L (3.5-5.1); TOT PROT 6.8 g/dl (6.4-8.2)
[2019-10-09] MEDS: BUDESONIDE/FORMETEROL FUMARATE 160/4.5 mcg INHALER IH SCH ×2 (12:59→22:45)
[2019-10-09] MEDS: PRENATAL VITAMINS W/ FOLIC ACID TABLET (FP) PO SCH (13:00)
[2019-10-09] MEDS: LIDOCAINE 5% TOPICAL PATCH TP SCH (13:00)
--- NOTE | 2019-10-09 13:35 | PN ---
[facility] CIWA - CIWA Score Nausea/Vomitin-Mild Nausea/No Vomiting Muscle Tremors: 2 Anxiety: 3 Agitation: 1-Slight > Activity Paroxysmal Sweats: 2 Orientation: 0-Oriented Tacttile Disturbances: 0-None Auditory Disturbances: 0-None Visual Disturbances: 0-None Headache: 1-Very Mild CIWA-Ar Total Score: 10 S Progress Note (SOAP) Subjective: 63 years old male admitted on 10/08/19 for alcohol withdrawal sx management treating wtih librium detox regimen resting in bed feeling tired limited conversation with staff Objective: 10/09/19 13:36 Vital Signs Temperature 97.6 F 10/09/19 13:36 Pulse Rate 89 10/09/19 13:36 Respiratory Rate 18 10/09/19 13:36 Blood Pressure 92/64 10/09/19 13:36 O2 Sat by Pulse Oximetry (%) Laboratory Last Values WBC 4.6 K/mm3 (4.0-10.0) 10/09/19 07:15 RBC 4.28 M/mm3 (4.00-5.60) 10/09/19 07:15 Hgb 13.2 GM/dL (11.7-16.9) 10/09/19 07:15 Hct 39.8 % (35.4-49) 10/09/19 07:15 MCV 93.0 fl (80-96) 10/09/19 07:15 MCH 30.8 pg (25.7-33.7) 10/09/19 07:15 MCHC 33.1 g/dl (32.0-35.9) 10/09/19 07:15 RDW 13.4 % (11.9-15.9) 10/09/19 07:15 Plt Count 278 K/MM3 (134-434) 10/09/19 07:15 MPV 9.4 fl (7.5-11.1) 10/09/19 07:15 Sodium 140 mmol/L (136-145) 10/09/19 07:15 Potassium 3.8 mmol/L (3.5-5.1) 10/09/19 07:15 Chloride 106 mmol/L (98-107) 10/09/19 07:15 Carbon Dioxide 27 mmol/L (21-32) 10/09/19 07:15 Anion Gap 7 MMOL/L (8-16) L 10/09/19 07:15 BUN 12.9 mg/dL (7-18) 10/09/19 07:15 Creatinine 1.1 mg/dL (0.55-1.3) 10/09/19 07:15 Est GFR (CKD-EPI)AfAm 82.95 10/09/19 07:15 Est GFR (CKD-EPI)NonAf 71.57 10/09/19 07:15 Random Glucose 90 mg/dL (74-106) 10/09/19 07:15 Calcium 8.5 mg/dL (8.5-10.1) 10/09/19 07:15 Total Bilirubin 0.7 mg/dL (0.2-1) 10/09/19 07:15 AST 16 U/L (15-37) 10/09/19 07:15 ALT 32 U/L (13-61) 10/09/19 07:15 Alkaline Phosphatase 119 U/L (45-117) H 10/09/19 07:15 Total Protein 6.8 g/dl (6.4-8.2) 10/09/19 07:15 Albumin 3.2 g/dl (3.4-5.0) L 10/09/19 07:15 RPR Titer Nonreactive (NONREACTIVE) 10/09/19 07:15 lab noted Assessment: 10/09/19 13:37 alcohol withdrawal Plan: librium regimen
[2019-10-09] MEDS: traZODone HCL 50 MG TABLET (FP) PO PRN (22:42)
[2019-10-09] MEDS: THIAMINE HCL 100 MG TABLET (FP) PO SCH (22:42)
[2019-10-09] MEDS: MONTELUKAST NA 10 MG TABLET PO SCH (22:42)
[2019-10-09] MEDS: MELATONIN 5 MG TABLETS PO PRN (22:43)
[2019-10-09] MEDS: LIDOCAINE PATCH REMOVAL MC SCH (22:43)
[2019-10-10] MEDS: chlordiazePOXIDE 5 MG CAPSULE PO SCH ×3 (05:35→22:10)
[2019-10-10] MEDS: BUDESONIDE/FORMETEROL FUMARATE 160/4.5 mcg INHALER IH SCH ×2 (10:27→22:12)
[2019-10-10] MEDS: LIDOCAINE 5% TOPICAL PATCH TP SCH (10:29)
[2019-10-10] MEDS: PRENATAL VITAMINS W/ FOLIC ACID TABLET (FP) PO SCH (10:29)
[2019-10-10] MEDS: IBUPROFEN 600 MG TABLET (FP) PO PRN ×2 (10:30→22:12)
--- NOTE | 2019-10-10 10:54 | PN ---
S CIWA - CIWA Score Nausea/Vomitin-No Nausea/No Vomiting Muscle Tremors: None Anxiety: 3 Agitation: 1-Slight > Activity Paroxysmal Sweats: 2 Orientation: 0-Oriented Tacttile Disturbances: 0-None Auditory Disturbances: 0-None Visual Disturbances: 0-None Headache: 0-None Present CIWA-Ar Total Score: 6 BHS Progress Note (SOAP) Subjective: 63 years old male admitted on 10/08/19 for alcohol withdrawal sx management treating with librium detox regimen feeling ok today requesting to be seen by a psychiatrist that he was taking welbutrin for "anxiety" emotional support offer vistaril if needed Objective: 10/10/19 10:56 Vital Signs Temperature 97.5 F L 10/10/19 09:19 Pulse Rate 8 L 10/10/19 09:19 Respiratory Rate 18 10/10/19 09:19 Blood Pressure 97/65 10/10/19 09:19 O2 Sat by Pulse Oximetry (%) Laboratory Last Values WBC 4.6 K/mm3 (4.0-10.0) 10/09/19 07:15 RBC 4.28 M/mm3 (4.00-5.60) 10/09/19 07:15 Hgb 13.2 GM/dL (11.7-16.9) 10/09/19 07:15 Hct 39.8 % (35.4-49) 10/09/19 07:15 MCV 93.0 fl (80-96) 10/09/19 07:15 MCH 30.8 pg (25.7-33.7) 10/09/19 07:15 MCHC 33.1 g/dl (32.0-35.9) 10/09/19 07:15 RDW 13.4 % (11.9-15.9) 10/09/19 07:15 Plt Count 278 K/MM3 (134-434) 10/09/19 07:15 MPV 9.4 fl (7.5-11.1) 10/09/19 07:15 Sodium 140 mmol/L (136-145) 10/09/19 07:15 Potassium 3.8 mmol/L (3.5-5.1) 10/09/19 07:15 Chloride 106 mmol/L (98-107) 10/09/19 07:15 Carbon Dioxide 27 mmol/L (21-32) 10/09/19 07:15 Anion Gap 7 MMOL/L (8-16) L 10/09/19 07:15 BUN 12.9 mg/dL (7-18) 10/09/19 07:15 Creatinine 1.1 mg/dL (0.55-1.3) 10/09/19 07:15 Est GFR (CKD-EPI)AfAm 82.95 10/09/19 07:15 Est GFR (CKD-EPI)NonAf 71.57 10/09/19 07:15 Random Glucose 90 mg/dL (74-106) 10/09/19 07:15 Calcium 8.5 mg/dL (8.5-10.1) 10/09/19 07:15 Total Bilirubin 0.7 mg/dL (0.2-1) 10/09/19 07:15 AST 16 U/L (15-37) 10/09/19 07:15 ALT 32 U/L (13-61) 10/09/19 07:15 Alkaline Phosphatase 119 U/L (45-117) H 10/09/19 07:15 Total Protein 6.8 g/dl (6.4-8.2) 10/09/19 07:15 Albumin 3.2 g/dl (3.4-5.0) L 10/09/19 07:15 RPR Titer Nonreactive (NONREACTIVE) 10/09/19 07:15 lab noted Assessment: 10/10/19 10:56 alcohol withdrawal Plan: librium regimen
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
[2019-10-10] MEDS: THIAMINE HCL 100 MG TABLET (FP) PO SCH (22:10)
[2019-10-10] MEDS: LIDOCAINE PATCH REMOVAL MC SCH (22:10)
[2019-10-10] MEDS: MONTELUKAST NA 10 MG TABLET PO SCH (22:11)
[2019-10-11] MEDS ORDERED: chlordiazePOXIDE HCL 10 MG CAPSULE PO PRN
[2019-10-11] MEDS: IBUPROFEN 600 MG TABLET (FP) PO PRN ×2 (05:33→22:01)
[2019-10-11] MEDS: chlordiazePOXIDE HCL 10 MG CAPSULE PO SCH ×3 (05:37→21:59)
[2019-10-11] MEDS: PRENATAL VITAMINS W/ FOLIC ACID TABLET (FP) PO SCH (09:56)
[2019-10-11] MEDS: LIDOCAINE 5% TOPICAL PATCH TP SCH (09:56)
[2019-10-11] MEDS: BUDESONIDE/FORMETEROL FUMARATE 160/4.5 mcg INHALER IH SCH ×2 (09:57→22:00)
--- NOTE | 2019-10-11 11:42 | PN ---
S CIWA - CIWA Score Nausea/Vomitin-No Nausea/No Vomiting Muscle Tremors: 1-None Visible, but [place] Anxiety: 3 Agitation: 0-Normal Activity Paroxysmal Sweats: No Perspiration Orientation: 0-Oriented Tacttile Disturbances: 0-None Auditory Disturbances: 0-None Visual Disturbances: 0-None Headache: 0-None Present CIWA-Ar Total Score: 4 BHS Progress Note (SOAP) Subjective: 63 years old male admitted on 10/08/19 for alcohol withdrawal sx management treating with librium detox regimen feeling better today less tremor slept through the night encourage to attend behavior and psychosocial therapies while in detox Objective: 10/11/19 11:41 Vital Signs Temperature 97.3 F L 10/11/19 09:07 Pulse Rate 77 10/11/19 09:07 Respiratory Rate 18 10/11/19 09:07 Blood Pressure 93/55 L 10/11/19 09:07 O2 Sat by Pulse Oximetry (%) Laboratory Last Values WBC 4.6 K/mm3 (4.0-10.0) 10/09/19 07:15 RBC 4.28 M/mm3 (4.00-5.60) 10/09/19 07:15 Hgb 13.2 GM/dL (11.7-16.9) 10/09/19 07:15 Hct 39.8 % (35.4-49) 10/09/19 07:15 MCV 93.0 fl (80-96) 10/09/19 07:15 MCH 30.8 pg (25.7-33.7) 10/09/19 07:15 MCHC 33.1 g/dl (32.0-35.9) 10/09/19 07:15 RDW 13.4 % (11.9-15.9) 10/09/19 07:15 Plt Count 278 K/MM3 (134-434) 10/09/19 07:15 MPV 9.4 fl (7.5-11.1) 10/09/19 07:15 Sodium 140 mmol/L (136-145) 10/09/19 07:15 Potassium 3.8 mmol/L (3.5-5.1) 10/09/19 07:15 Chloride 106 mmol/L (98-107) 10/09/19 07:15 Carbon Dioxide 27 mmol/L (21-32) 10/09/19 07:15 Anion Gap 7 MMOL/L (8-16) L 10/09/19 07:15 BUN 12.9 mg/dL (7-18) 10/09/19 07:15 Creatinine 1.1 mg/dL (0.55-1.3) 10/09/19 07:15 Est GFR (CKD-EPI)AfAm 82.95 10/09/19 07:15 Est GFR (CKD-EPI)NonAf 71.57 10/09/19 07:15 Random Glucose 90 mg/dL (74-106) 10/09/19 07:15 Calcium 8.5 mg/dL (8.5-10.1) 10/09/19 07:15 Total Bilirubin 0.7 mg/dL (0.2-1) 10/09/19 07:15 AST 16 U/L (15-37) 10/09/19 07:15 ALT 32 U/L (13-61) 10/09/19 07:15 Alkaline Phosphatase 119 U/L (45-117) H 10/09/19 07:15 Total Protein 6.8 g/dl (6.4-8.2) 10/09/19 07:15 Albumin 3.2 g/dl (3.4-5.0) L 10/09/19 07:15 RPR Titer Nonreactive (NONREACTIVE) 10/09/19 07:15 lab noted Assessment: 10/11/19 11:42 alcohol withdrawal Plan: librium regimen
[2019-10-11] MEDS: LIDOCAINE PATCH REMOVAL MC SCH (22:00)
[2019-10-11] MEDS: THIAMINE HCL 100 MG TABLET (FP) PO SCH (22:00)
[2019-10-11] MEDS: MONTELUKAST NA 10 MG TABLET PO SCH (22:00)
[2019-10-11] MEDS: MELATONIN 5 MG TABLETS PO PRN (22:00)
[2019-10-12] MEDS: traZODone HCL 50 MG TABLET (FP) PO PRN (00:36)
[2019-10-12] MEDS ORDERED: chlordiazePOXIDE HCL 10 MG CAPSULE PO ONE (05:00)
[2019-10-12] MEDS: IBUPROFEN 600 MG TABLET (FP) PO PRN (06:06)
[2019-10-12 07:33] VITALS: BP 98/50; PULSE 66; TEMP 97.9
--- NOTE | 2019-10-12 08:38 | DS ---
[facility] Detox Discharge Summary Admission Date: 10/08/19 Discharge Date: 10/12/19 - History Present History: Alcohol Dependence, Cocaine Dependence - Physical Exam Results Vital Signs: Vital Signs Temperature 97.9 F 10/12/19 07:33 Pulse Rate 66 10/12/19 07:33 Respiratory Rate 18 10/12/19 07:33 Blood Pressure 98/50 L 10/12/19 07:33 O2 Sat by Pulse Oximetry (%) - Treatment Hospital Course: Detox Protocol Followed, Detoxed Safely, Responded well, Discharged Condition Good - Medication Discharge Medications: Ambulatory Orders Albuterol Sulfate Inhaler - [Ventolin HFA Inhaler -] 2 inh PO Q4H PRN #1 inhaler 04/20/19 Fluticasone/Salmeterol [Advair 250-50 Diskus] 1 each IH BID 09/03/19 Ibuprofen 800 mg PO BID PRN 09/03/19 Montelukast Na [Singulair -] 10 mg PO HS 09/03/19 - AMA Did Patient Leave Against Medical Advice: No
== END 2019-10-12 08:49 | disposition home or self-care (01) | DRG 897 ==
LOC: YASAS 11:00 → Y3N 12:29
PROVIDERS: ADMIT Allergy & Immunology; ATTEND Allergy & Immunology
PROC: HZ2ZZZZ Detoxification Services for Substance Abuse Treatment (ICD-10-PCS; principal; 2019-10-08)
DX: F10.230 Alcohol dependence with withdrawal, uncomplicated (principal); F14.20 Cocaine dependence, uncomplicated; H20.9 Unspecified iridocyclitis; F19.24 Other psychoactive substance dependence with psychoactive substance-induced mood disorder; G47.00 Insomnia, unspecified; J45.909 Unspecified asthma, uncomplicated; M54.5 Low back pain; M54.2 Cervicalgia; G89.29 Other chronic pain; H04.123 Dry eye syndrome of bilateral lacrimal glands; L80 Vitiligo; Z99.89 Dependence on other enabling machines and devices
CPT/HCPCS: 36415; 80053; 85027; 86593

== ENCOUNTER 2020-08-12 11:23 | Inpatient (IN) | payer OTHER ==
[2020-08-12 11:51] VITALS: BMI 23.8
[2020-08-12] MEDS ORDERED: ACETAMINOPHEN 325 MG TABLET (FP) PO PRN (12:11)
[2020-08-12] MEDS ORDERED: MAGNESIUM HYDROX 2400MG/30ML ORAL SUSPENSION 30 ML CUP PO PRN (12:11)
[2020-08-12] MEDS ORDERED: MAG HYDROX/AL HYDROX/SIMETH 30 ML UNIT-DOSE CUP PO PRN (12:11)
[2020-08-12] MEDS ORDERED: diazePAM 5 MG TABLET PO PRN (12:11)
[2020-08-12] MEDS ORDERED: diazePAM 5 MG TABLET PO ONE (12:11)
[2020-08-12] MEDS ORDERED: ONDANSETRON *ODT* 4 MG TABLET SL PRN (12:11)
[2020-08-12] MEDS ORDERED: MAGNESIUM CITRATE 300 ML BOTTLE PO PRN (12:11)
[2020-08-12] MEDS ORDERED: MENTHOL/PHENOL 1 EACH UD MM PRN (12:11)
[2020-08-12] MEDS ORDERED: BISMUTH SUBSALICYLATE 524 MG/30 ML UD PO PRN (12:11)
[2020-08-12] MEDS ORDERED: ALBUTEROL SO4 HFA INHALER IH PRN (12:14)
[2020-08-12] MEDS ORDERED: PNEUMOCOCCAL 23 VACCINE 0.5 ML VIAL IM ONE (13:00)
[2020-08-12] MEDS: IBUPROFEN 400 MG TABLET (FP) PO PRN (13:06)
[2020-08-12] MEDS: diazePAM 5 MG TABLET PO SCH ×2 (17:43→22:45)
[2020-08-12] MEDS: MELATONIN 5 MG TABLETS PO SCH (22:45)
[2020-08-12] MEDS: THIAMINE HCL 100 MG TABLET (FP) PO SCH (22:46)
[2020-08-13] MEDS: diazePAM 5 MG TABLET PO SCH ×4 (05:11→22:08)
[2020-08-13] MEDS: IBUPROFEN 400 MG TABLET (FP) PO PRN ×3 (05:13→20:28)
[2020-08-13] MEDS: hydrOXYzine PAMOATE 25 MG CAPSULE (FP) PO PRN (05:13)
[2020-08-13] MEDS ORDERED: PNEUMOC 13-VAL CONJ-DIP CRM/PF 0.5 ML DISP.SYRIN IM ONE (06:00)
[2020-08-13] MEDS: PRENATAL VITAMINS W/ FOLIC ACID TABLET (FP) PO SCH (10:53)
[2020-08-13 11:23] LABS: HEMATOCRIT 32.7 % (35.4-49); HEMOGLOBIN 10.9 GM/dL (11.7-16.9); MCH 30.5 pg (25.7-33.7); MCHC 33.3 g/dl (32.0-35.9); MEAN CELL VOLUME 91.6 fl (80-96); MEAN PLT VOLUME 8.5 fl (7.5-11.1); PLATELET COUNT 279 K/MM3 (134-434); RBC 3.57 M/mm3 (4.00-5.60); WHITE BLOOD COUNT 4.4 K/mm3 (4.0-10.0)
[2020-08-13 11:34] LABS: POTASSIUM 4.2 mmol/L (3.5-5.1)
[2020-08-13 11:40] LABS: ALBUMIN 2.7 g/dl (3.4-5.0); CALCIUM 8.5 mg/dL (8.5-10.1)
[2020-08-13 11:41] LABS: BLOOD UREA NITROGEN 10.5 mg/dL (7-18)
[2020-08-13 11:44] LABS: CREATININE 0.7 mg/dL (0.55-1.3)
[2020-08-13 11:45] LABS: BILIRUBIN,TOTAL 0.4 mg/dL (0.2-1); TOT PROT 6.6 g/dl (6.4-8.2)
[2020-08-13] MEDS ORDERED: FLU VACCINE (FLULAVAL) PF 60 MCG/0.5 ML SYRINGE 2020-2021 IM ONE (12:00)
[2020-08-13 14:28] LABS: HIV INTERPRETATION NEGATIVE (NEGATIVE)
[2020-08-13] MEDS: THIAMINE HCL 100 MG TABLET (FP) PO SCH (22:08)
[2020-08-13] MEDS: MONTELUKAST NA 10 MG TABLET PO SCH (22:08)
[2020-08-13] MEDS: MELATONIN 5 MG TABLETS PO SCH (22:08)
[2020-08-14] MEDS: diazePAM 5 MG TABLET PO SCH ×3 (05:17→22:01)
[2020-08-14] MEDS: IBUPROFEN 400 MG TABLET (FP) PO PRN ×2 (05:20→22:03)
[2020-08-14] MEDS: PRENATAL VITAMINS W/ FOLIC ACID TABLET (FP) PO SCH (10:23)
[2020-08-14] MEDS: ACETAMINOPHEN 325 MG TABLET (FP) PO PRN (10:24)
[2020-08-14] MEDS: METHOCARBAMOL 500 MG TABLET PO PRN (10:25)
[2020-08-14] MEDS ORDERED: PNEUMOCOCCAL 23 VACCINE 0.5 ML VIAL IM ONE (12:00)
[2020-08-14] MEDS ORDERED: FLU VACCINE (FLULAVAL) PF 60 MCG/0.5 ML SYRINGE 2020-2021 IM ONE (12:00)
[2020-08-14] MEDS: MONTELUKAST NA 10 MG TABLET PO SCH (22:01)
[2020-08-14] MEDS: MELATONIN 5 MG TABLETS PO SCH (22:02)
[2020-08-14] MEDS: THIAMINE HCL 100 MG TABLET (FP) PO SCH (22:02)
[2020-08-15] MEDS: IBUPROFEN 400 MG TABLET (FP) PO PRN ×2 (05:32→22:16)
[2020-08-15] MEDS: METHOCARBAMOL 500 MG TABLET PO PRN ×2 (05:32→22:16)
[2020-08-15] MEDS: diazePAM 5 MG TABLET PO SCH ×2 (05:32→17:48)
[2020-08-15] MEDS: PRENATAL VITAMINS W/ FOLIC ACID TABLET (FP) PO SCH (10:54)
[2020-08-15] MEDS: ACETAMINOPHEN 325 MG TABLET (FP) PO PRN ×2 (10:57→17:49)
[2020-08-15] MEDS: THIAMINE HCL 100 MG TABLET (FP) PO SCH (22:16)
[2020-08-15] MEDS: MONTELUKAST NA 10 MG TABLET PO SCH (22:17)
[2020-08-15] MEDS: MELATONIN 5 MG TABLETS PO SCH (22:17)
[2020-08-16] MEDS: hydrOXYzine PAMOATE 25 MG CAPSULE (FP) PO PRN (05:45)
[2020-08-16] MEDS: METHOCARBAMOL 500 MG TABLET PO PRN (05:48)
[2020-08-16] MEDS: IBUPROFEN 400 MG TABLET (FP) PO PRN (05:48)
[2020-08-16] MEDS ORDERED: diazePAM 5 MG TABLET PO ONE (06:00)
[2020-08-16 10:04] VITALS: BP 94/59; PULSE 96; TEMP 98.4
[2020-08-16] MEDS: PRENATAL VITAMINS W/ FOLIC ACID TABLET (FP) PO SCH (10:15)
[2020-08-16] MEDS: ACETAMINOPHEN 325 MG TABLET (FP) PO PRN (10:16)
== END 2020-08-16 12:22 | disposition home or self-care (01) | DRG 897 ==
LOC: YASAS 11:23 → Y6N 12:24
PROVIDERS: ADMIT Allergy & Immunology; ATTEND Allergy & Immunology
PROC: HZ2ZZZZ Detoxification Services for Substance Abuse Treatment (ICD-10-PCS; principal; 2020-08-12)
DX: F10.230 Alcohol dependence with withdrawal, uncomplicated (principal); F14.20 Cocaine dependence, uncomplicated; G47.00 Insomnia, unspecified; J45.20 Mild intermittent asthma, uncomplicated; L80 Vitiligo; M54.5 Low back pain; Z98.890 Other specified postprocedural states
CPT/HCPCS: 36415; 80053; 85027; 86780; 87389; 90732; 93005; 93010; C9803; G0008; G0009; Q2036; U0003

== ENCOUNTER 2025-05-12 17:46 | Inpatient (IN) | payer OTHER ==
[2025-05-12 18:56] VITALS: BMI 26.1
[2025-05-12] MEDS ORDERED: BENZONATATE 200 MG CAPSULE PO PRN (19:14)
[2025-05-12] MEDS ORDERED: IBUPROFEN 400 MG TABLET (FP) PO PRN (19:14)
[2025-05-12] MEDS ORDERED: LOPERAMIDE HCL 2 MG CAPSULE PO PRN (19:14)
[2025-05-12] MEDS ORDERED: BISMUTH SUBSALICYLATE 524 MG/30 ML PO PRN (19:14)
[2025-05-12] MEDS ORDERED: POLYETHYLENE GLYCOL (HEALTHYLAX) 3350 17 GM PACKET PO PRN (19:14)
[2025-05-12] MEDS ORDERED: DICYCLOMINE HCL 10 MG CAPSULE PO PRN (19:14)
[2025-05-12] MEDS ORDERED: MAG HYDROX/AL HYDROX/SIMETH 30 ML UNIT-DOSE CUP PO PRN (19:14)
[2025-05-12] MEDS ORDERED: BENZOCAINE/MENTHOL (CHLORASEPTIC ) LOZENGE MM PRN (19:14)
[2025-05-12] MEDS ORDERED: guaiFENesin 600 MG TABLET.ER (FP) PO PRN (19:14)
[2025-05-12] MEDS ORDERED: NALOXONE (NARCAN) HCL 4 MG/0.1 ML SPRAY NS PRN (19:14)
[2025-05-12] MEDS ORDERED: ACETAMINOPHEN 325 MG TABLET (FP) PO PRN (19:14)
[2025-05-12] MEDS ORDERED: ONDANSETRON *ODT* 4 MG TABLET SL PRN (19:14)
[2025-05-12] MEDS ORDERED: MAGNESIUM HYDROX 2400MG/30ML ORAL SUSPENSION 30 ML CUP PO PRN (19:14)
[2025-05-12] MEDS: IBUPROFEN 600 MG TABLET (FP) PO PRN (20:33)
[2025-05-12] MEDS: MELATONIN 5 MG TABLETS PO SCH (22:28)
[2025-05-12] MEDS: THIAMINE 100 MG TABLET PO SCH (22:28)
[2025-05-12] MEDS: hydrOXYzine PAMOATE 25 MG CAPSULE (FP) PO PRN (22:30)
[2025-05-13 09:50] LABS: MCHC 32.9 g/dl (32.3-36.5); MEAN CELL VOLUME 93.4 fl (79.0-92.2); MEAN PLT VOLUME 10.5 fl (9.4-12.4); RDW 11.9 % (12.2-16.4)
[2025-05-13] MEDS: PRENATAL VITAMINS W/ FOLIC ACID TABLET (FP) PO SCH (10:00)
[2025-05-13 10:16] LABS: GLUCOSE,RANDOM 86 mg/dL (74-106)
[2025-05-13 10:17] LABS: TOT PROT 5.9 g/dl (6.4-8.2)
[2025-05-13 10:18] LABS: CO2 24 mmol/L (21-32)
[2025-05-13 10:19] LABS: ALK PHOS 137 U/L (40-150)
[2025-05-13 10:22] LABS: SGOT/AST 16 U/L (5-34); SGPT/ALT 11 U/L (0-55)
[2025-05-13 11:25] LABS: CREATININE 0.69 mg/dL (0.55-1.3)
[2025-05-14 10:07] VITALS: BP 111/60; PULSE 81; RESP 15; TEMP 97.3
== END 2025-05-14 11:00 | disposition home or self-care (01) | DRG 897 ==
LOC: YASAS 17:46 → Y3N 20:07
PROVIDERS: ADMIT Neuromusculoskeletal Medicine & OMM; ATTEND Allergy & Immunology
PROC: HZ2ZZZZ Detoxification Services for Substance Abuse Treatment (ICD-10-PCS; principal; 2025-05-12)
DX: F10.20 Alcohol dependence, uncomplicated (principal); F14.20 Cocaine dependence, uncomplicated; F41.9 Anxiety disorder, unspecified; J45.20 Mild intermittent asthma, uncomplicated; M54.50 Low back pain, unspecified; G89.29 Other chronic pain
CPT/HCPCS: 36415; 80053; 80307; 85027; 86780; 93005; 93010

== ENCOUNTER 2025-06-13 13:03 | Inpatient (IN) | payer OTHER ==
[2025-06-13 13:35] VITALS: BMI 24.6
[2025-06-13] MEDS ORDERED: ONDANSETRON *ODT* 4 MG TABLET SL PRN (13:44)
[2025-06-13] MEDS ORDERED: LOPERAMIDE HCL 2 MG CAPSULE PO PRN (13:44)
[2025-06-13] MEDS ORDERED: BENZOCAINE/MENTHOL (CHLORASEPTIC ) LOZENGE MM PRN (13:44)
[2025-06-13] MEDS ORDERED: BISMUTH SUBSALICYLATE 524 MG/30 ML PO PRN (13:44)
[2025-06-13] MEDS ORDERED: BENZONATATE 200 MG CAPSULE PO PRN (13:44)
[2025-06-13] MEDS ORDERED: POLYETHYLENE GLYCOL (HEALTHYLAX) 3350 17 GM PACKET PO PRN (13:44)
[2025-06-13] MEDS ORDERED: MAGNESIUM HYDROX 2400MG/30ML ORAL SUSPENSION 30 ML CUP PO PRN (13:44)
[2025-06-13] MEDS ORDERED: IBUPROFEN 400 MG TABLET (FP) PO PRN (13:44)
[2025-06-13] MEDS ORDERED: guaiFENesin 600 MG TABLET.ER (FP) PO PRN (13:44)
[2025-06-13] MEDS ORDERED: MAG HYDROX/AL HYDROX/SIMETH 30 ML UNIT-DOSE CUP PO PRN (13:44)
[2025-06-13] MEDS ORDERED: NALOXONE (NARCAN) HCL 4 MG/0.1 ML SPRAY NS PRN (13:44)
[2025-06-13] MEDS ORDERED: IBUPROFEN 600 MG TABLET (FP) PO ONE (14:37)
[2025-06-13] MEDS: IBUPROFEN 600 MG TABLET (FP) PO PRN (14:37)
[2025-06-13] MEDS ORDERED: ALBUTEROL SO4 HFA INHALER IH PRN (14:48)
[2025-06-13] MEDS: MONTELUKAST NA 10 MG TABLET PO SCH (22:18)
[2025-06-13] MEDS: THIAMINE 100 MG TABLET PO SCH (22:18)
[2025-06-13] MEDS: MELATONIN 5 MG TABLETS PO SCH (22:18)
[2025-06-14] MEDS: PRENATAL VITAMINS W/ FOLIC ACID TABLET (FP) PO SCH (10:54)
[2025-06-14 11:45] LABS: MCHC 32.4 g/dl (32.3-36.5); MEAN CELL VOLUME 95.1 fl (79.0-92.2); MEAN PLT VOLUME 11.2 fl (9.4-12.4); RDW 12.2 % (12.2-16.4)
[2025-06-14 12:10] LABS: GLUCOSE,RANDOM 64.0 mg/dL (74-106); TOT PROT 7.6 g/dl (6.4-8.2)
[2025-06-14 12:11] LABS: CO2 25.0 mmol/L (21-32)
[2025-06-14 12:15] LABS: SGOT/AST 21.0 U/L (5-34); SGPT/ALT 16.0 U/L (0-55)
[2025-06-14 12:16] LABS: CREATININE 0.83 mg/dL (0.55-1.3)
[2025-06-14 12:35] LABS: ALK PHOS 167.0 U/L (40-150)
[2025-06-15] MEDS: ACETAMINOPHEN 325 MG TABLET (FP) PO PRN (00:43)
[2025-06-15 09:46] VITALS: BP 104/61; PULSE 89; RESP 14; TEMP 97.2
== END 2025-06-15 10:37 | disposition home or self-care (01) | DRG 897 ==
LOC: YASAS 13:03 → Y3N 14:20
PROVIDERS: ADMIT Neuromusculoskeletal Medicine & OMM; ATTEND Student in an Organized Health Care Education/Training Program
PROC: HZ2ZZZZ Detoxification Services for Substance Abuse Treatment (ICD-10-PCS; principal; 2025-06-13)
DX: F10.230 Alcohol dependence with withdrawal, uncomplicated (principal); F14.20 Cocaine dependence, uncomplicated; F17.210 Nicotine dependence, cigarettes, uncomplicated; F41.9 Anxiety disorder, unspecified; M54.50 Low back pain, unspecified; G89.29 Other chronic pain
CPT/HCPCS: 36415; 80053; 80305; 80307; 85027; 86780; 93005; 93010